=== PATIENT | male | born 1970 | race Caucasian/White ===

== ENCOUNTER 2019-05-19 08:40 | Day surgery (SDC) | payer MEDICAID, OTHER ==
[2019-05-18 08:29] VITALS: BMI 41.8
[~2019-05-19 08:40] MED LIST: LACTATED RINGERS 1,000 ML IV SCH
[2019-05-19 09:06] VITALS: RESP 16; TEMP 97.2
[2019-05-19] MEDS ORDERED: LIDOCAINE 1% 20 ML VIAL (10MG/ML) FOR IV START INTRADERMA ONE (09:11)
[2019-05-19] MEDS ORDERED: PROPOFOL 10 MG/ML 20 ML VIAL IV ONE (09:49)
--- NOTE | 2019-05-19 10:07 | P.PCN ---
Date of Procedure: 05/19/19 Procedure(s) Performed: BRIEF HISTORY: Patient is a 48-year-old pleasant male, scheduled for an elective colonoscopy as a part of screening for colorectal neoplasia. PROCEDURE PERFORMED: Colonoscopy with snare polypectomy. PREOPERATIVE DIAGNOSIS: Screening for colon cancer. IV sedation per Anesthesia. PROCEDURE: After informed consent was obtained, the patient, was brought into the endoscopy unit. IV sedation was administered by Anesthesia under continuous monitoring. Digital rectal examination was normal. Initially the Olympus CF-160 flexible video colonoscope was then inserted in the rectum, gradually advanced into the cecum without any difficulty. Careful examination was performed as the scope was gradually being withdrawn. Ileocecal valve and the appendiceal orifice were visualized and appeared normal. Prep was excellent. Mucosa of the cecum, ascending colon, transverse colon appeared normal. In the descending colon there were 2 polyps measuring 5 mm and 6 mm in size both of which were sessile and removed by snare polypectomy. In the sigmoid colon there was a 5 mm polyp and a 1.5 cm pedunculated polyp both of which were removed by snare polypectomy. Rest of the, descending colon, sigmoid colon, and rectum appeared normal. Retroflexion was performed in the rectum and no lesions were seen. The patient tolerated the procedure well. IMPRESSION: 5 mm and 6 mm sessile descending colon polyp status post polypectomy 5 mm and 1.5 cm pedunculated sigmoid colon polyps status post polypectomy RECOMMENDATIONS: Findings of this examination were discussed with the patient as well as his family. He was advised to follow with the biopsy results. If the biopsy shows an adenoma he can have a repeat colonoscopy in 3 years.
[2019-05-19 10:13] VITALS: PULSE 77
[2019-05-19 10:34] VITALS: BP 127/81
== END 2019-05-19 10:44 | disposition home or self-care (01) ==
LOC: ORWHC2ENDO 08:40
PROVIDERS: ATTEND Internal Medicine Gastroenterology
DX: Z12.11 Encounter for screening for malignant neoplasm of colon (principal); D12.4 Benign neoplasm of descending colon; D12.5 Benign neoplasm of sigmoid colon; I10 Essential (primary) hypertension; G47.33 Obstructive sleep apnea (adult) (pediatric); J45.909 Unspecified asthma, uncomplicated; E66.01 Morbid (severe) obesity due to excess calories; Z68.41 Body mass index [BMI] 40.0-44.9, adult; Z88.1 Allergy status to other antibiotic agents; Z88.8 Allergy status to other drugs, medicaments and biological substances; Z79.1 Long term (current) use of non-steroidal anti-inflammatories (NSAID)
CPT/HCPCS: 88305; 45385; J2704

== ENCOUNTER → 2019-11-30 | Outpatient (CLI) | payer MEDICAID | END | disposition home or self-care (01) | LOC: LABWHC1 14:26 | PROVIDERS: ATTEND Physician Assistant | DX: L40.0 Psoriasis vulgaris (principal); Z79.899 Other long term (current) drug therapy | CPT/HCPCS: 36415; 86480 ==

== ENCOUNTER → 2020-12-22 | Outpatient (CLI) | payer MEDICAID | END | disposition home or self-care (01) | LOC: LABWHC1 13:03 | PROVIDERS: ATTEND Physician Assistant | DX: L40.0 Psoriasis vulgaris (principal) | CPT/HCPCS: 36415; 86480 ==

== ENCOUNTER 2021-01-01 08:30 | Day surgery (SDC) | payer MEDICAID ==
[2020-12-29 11:23] VITALS: BMI 43.9
[~2021-01-01 08:30] MED LIST changes: +ACETAMINOPHEN TAB 500 MG TAB PO PRN; +DEXAMETHASONE SOD PHOSPHATE 4 MG/ML 1 ML VIAL IV ONE; +HEPARIN SODIUM,PORCINE 5,000 UNIT/ML 1 ML VIAL SQ PRN; +HYDROmorphone 0.5 MG/0.5 ML SYRINGE IVP PRN; -LACTATED RINGERS 1,000 ML IV SCH; +MIDAZOLAM 2 MG/2 ML VIAL IV PRN; +ONDANSETRON 4 MG/2 ML VIAL IVP ONE; +Pre Op ABX Message 1 EACH MISC MISCELLANE ONE; +fentaNYL (PF) 50 MCG/ML 2 ML AMP IV PRN
[2021-01-01 09:01] VITALS: RESP 16
[2021-01-01] MEDS: LACTATED RINGERS 1,000 ML IV SCH ×2 (09:08→10:23)
[2021-01-01] MEDS ORDERED: LIDOCAINE 1% (10MG/ML) FOR IV START INTRADERMA ONE (09:12)
[2021-01-01 09:16] LABS: Basophils # (A) 0.1 k/uL (0-0.2); Basophils % (A) 1 %; Eosinophils # (A) 0.2 k/uL (0-0.7); Eosinophils % (A) 2 %; HGB 15.5 gm/dL (13.0-17.5); Lymphocytes % (A) 34 %; MCH 29.2 pg (25.0-35.0); MCHC 34.3 g/dL (31.0-37.0); Mean Platelet Volume 7.4; Monocytes # (A) 0.5 k/uL (0-1.0); Monocytes % (A) 6 %; Neutrophils # (A) 4.9 k/uL (1.3-7.7); Neutrophils % (A) 55 %; Platelet Count 279 k/uL (150-450); RDW 15.1 % (11.5-15.5); WBC 8.9 k/uL (3.8-10.6)
--- NOTE | 2021-01-01 09:54 | P.GSHP ---
History of Present Illness H&P Date: 01/01/21 Chief Complaint: Back melanoma Is a 50-year-old male who has a previously biopsied back melanoma. Patient rents today for wide local excision. Past Medical History Past Medical History: Asthma, Cancer, Hypertension, Skin Disorder, Sleep Apnea/CPAP/BIPAP Additional Past Medical History / Comment(s): no cpap used, psoriasis, MALIGNANT MELONOMA BACK History of Any Multi-Drug Resistant Organisms: None Reported Past Surgical History: Cholecystectomy, Hernia Repair Additional Past Surgical History / Comment(s): HERNIA-UMBILICAL HERNIA Past Anesthesia/Blood Transfusion Reactions: No Reported Reaction Smoking Status: Never smoker - Past Family History Father Family Medical History: Cancer Mother Family Medical History: Cancer Medications and Allergies Home Medications Medication Instructions Recorded Confirmed Type Montelukast Sodium [Singulair] 10 mg PO HS 04/10/15 01/01/21 History [place]-3 Fatty Acids/Fish Oil [Fish 1 each PO DAILY 04/10/15 01/01/21 History Oil 1,000 mg Softgel] Ibuprofen [Motrin] 800 mg PO Q8HR PRN #30 tab 04/14/15 01/01/21 Rx Biotin 5,000 mcg PO DAILY 05/18/19 01/01/21 History Cholecalciferol [Vitamin D3 (25 5,000 unit PO DAILY 05/18/19 01/01/21 History Mcg = 1000 Iu)] Multivitamins, Thera [Multivitamin 1 tab PO DAILY 05/18/19 01/01/21 History (formulary)] Vortioxetine Hydrobromide 5 mg PO DAILY 05/18/19 01/01/21 History [Trintellix] Ixekizumab [Taltz Autoinjector] 80 mg SQ Q30D 12/29/20 01/01/21 History Telmisartan 80 mg PO HS 12/29/20 01/01/21 History hydroCHLOROthiazide [Hydrodiuril] 25 mg PO HS 12/29/20 01/01/21 History Allergies Allergy/AdvReac Type Severity Reaction Status Date / Time acetaminophen [From Vicodin] Allergy Nausea, Verified 12/29/20 11:10 insomnia aspartame Allergy Rash/Hives Verified 12/29/20 11:10 erythromycin base Allergy Rash/Hives Verified 12/29/20 11:10 hydrocodone bitartrate Allergy Nausea, Verified 12/29/20 11:10 [From Vicodin] insomnia lidocaine Allergy "passed Verified 12/29/20 11:10 out" Nitrate Analogues Allergy Rash/Hives Verified 12/29/20 11:10 paroxetine HCl [From Paxil] Allergy LUZ Verified 12/29/20 11:10 sulfite Allergy Rash/Hives Verified 12/29/20 11:10 environmental Allergy Unknown Uncoded 12/29/20 11:10 stevia Allergy Rash/Hives Uncoded 12/29/20 11:10 Surgical - Exam Vital Signs Temp Pulse Resp BP Pulse Ox 97.0 F L 102 H 16 136/96 99 01/01/21 08:57 01/01/21 08:57 01/01/21 08:57 01/01/21 08:57 01/01/21 08:57 - General well developed, well nourished, no distress - Eyes PERRL - ENT normal pinna - Neck no masses - Respiratory normal expansion - Cardiovascular Rhythm: regular - Abdomen Abdomen: soft, non tender - Integumentary 2 cm shave biopsy back melanoma over mid back near spine Results - Labs 01/01/21 09:10 01/01/21 09:10 Diabetes panel 01/01/21 Range/Units 09:10 Potassium 4.0 (3.5-5.1) mmol/L Pituitary panel 01/01/21 Range/Units 09:10 Potassium 4.0 (3.5-5.1) mmol/L Adrenal panel 01/01/21 Range/Units 09:10 Potassium 4.0 (3.5-5.1) mmol/L Assessment and Plan Assessment: Back melanoma. We'll perform wide local excision
[2021-01-01] MEDS ORDERED: PROPOFOL 10 MG/ML 20 ML VIAL IV ONE (10:15)
[2021-01-01] MEDS ORDERED: MIDAZOLAM 2 MG/2 ML VIAL ONE (10:15)
[2021-01-01] MEDS ORDERED: SUCCINYLCHOLINE CHLORIDE 100 MG/5 ML SYR IV ONE (10:15)
[2021-01-01] MEDS ORDERED: fentaNYL (PF) 50 MCG/ML 2 ML AMP ONE (10:15)
[2021-01-01] MEDS ORDERED: BUPIVACAINE (PF) 0.25% 30 ML VIAL SQ ONE ×2 (10:47)
--- NOTE | 2021-01-01 11:04 | P.OP ---
Date of Procedure: 01/01/21 Preoperative Diagnosis: Melanoma of back Postoperative Diagnosis: Melanoma of back Procedure(s) Performed: Local excision of back melanoma Anesthesia: KENRICK Surgeon: Harman Hawkins Estimated Blood Loss (ml): 5 Pathology: other (Back melanoma) Condition: stable Disposition: PACU Description of Procedure: Patient's placed on the operative table in the lateral position. Due to his morbid obesity the patient was intubated. His back was prepped and draped usual sterile fashion. Elliptical skin incision was made around the back melanoma. This lesion measured approximately 5 x 3 cm. The Bovie pseudocyst. The Bovie was used to dissect through subcutaneous tissues. The specimens of pathology. A suture was used to willam the the superior portion of the lesion. The skin was closed with interrupted 2-0 nylon. Patient top she will was sent to recovery room stable condition.
[2021-01-01 11:17] VITALS: TEMP 97.6
[2021-01-01 12:16] VITALS: BP 136/95; PULSE 86
== END 2021-01-01 12:39 | disposition home or self-care (01) ==
LOC: OR 08:30
PROVIDERS: ATTEND Surgery
DX: C43.59 Malignant melanoma of other part of trunk (principal); I10 Essential (primary) hypertension; J45.909 Unspecified asthma, uncomplicated; G47.30 Sleep apnea, unspecified; E66.01 Morbid (severe) obesity due to excess calories; Z79.899 Other long term (current) drug therapy; Z80.9 Family history of malignant neoplasm, unspecified; Z88.6 Allergy status to analgesic agent; Z88.5 Allergy status to narcotic agent; Z88.8 Allergy status to other drugs, medicaments and biological substances; Z91.018 Allergy to other foods
CPT/HCPCS: 11606; 88305; 84132; 85025; 88342; 88341; J2250; J1644; J1100; J2405; J3010; J0330; J2704

== ENCOUNTER 2021-01-03 21:05 | Emergency (ER) | payer MEDICAID ==
[2021-01-03 23:24] VITALS: BP 132/71; PULSE 100; RESP 20; TEMP 98.9
--- NOTE | 2021-01-04 00:35 | ED ---
Skin/Abscess/FB HPI - General Chief complaint: Skin/Abscess/Foreign Body Stated complaint: Possible wound infection Time Seen by Provider: 01/04/21 00:31 Source: patient, RN notes reviewed Mode of arrival: ambulatory Limitations: no limitations - History of Present Illness Initial comments: Patient is a 50-year-old male that had a large skin cancer removed on 01/01/2021. He noted that decided to change and drain some fluid so he can emergency room to get checked out. He noted that he is taking her Biaxin as a follow-up appointment today at 1 PM. He is on account to make sure that nothing was more serious wrong or infection at stated. He denied any pain or discomfort while standing up for the exam interview. He denied chest pain shortness breath headache nausea vomiting diarrhea constipation fever fatigue chills weakness numbness tingling. - Related Data Home Medications Medication Instructions Recorded Confirmed Montelukast Sodium [Singulair] 10 mg PO HS 04/10/15 01/01/21 [place]-3 Fatty Acids/Fish Oil [Fish 1 each PO DAILY 04/10/15 01/01/21 Oil 1,000 mg Softgel] Biotin 5,000 mcg PO DAILY 05/18/19 01/01/21 Cholecalciferol [Vitamin D3 (25 5,000 unit PO DAILY 05/18/19 01/01/21 Mcg = 1000 Iu)] Multivitamins, Thera [Multivitamin 1 tab PO DAILY 05/18/19 01/01/21 (formulary)] Vortioxetine Hydrobromide 5 mg PO DAILY 05/18/19 01/01/21 [Trintellix] Ixekizumab [Taltz Autoinjector] 80 mg SQ Q30D 12/29/20 01/01/21 Telmisartan 80 mg PO HS 12/29/20 01/01/21 hydroCHLOROthiazide [Hydrodiuril] 25 mg PO HS 12/29/20 01/01/21 Previous Rx's Medication Instructions Recorded Ibuprofen [Motrin] 800 mg PO Q8HR PRN #30 tab 04/14/15 Allergies Allergy/AdvReac Type Severity Reaction Status Date / Time acetaminophen [From Vicodin] Allergy Nausea, Verified 01/03/21 23:24 insomnia aspartame Allergy Rash/Hives Verified 01/03/21 23:24 erythromycin base Allergy Rash/Hives Verified 01/03/21 23:24 hydrocodone bitartrate Allergy Nausea, Verified 01/03/21 23:24 [From Vicodin] insomnia lidocaine Allergy "passed Verified 01/03/21 23:24 out" Nitrate Analogues Allergy Rash/Hives Verified 01/03/21 23:24 paroxetine HCl [From Paxil] Allergy LUZ Verified 01/03/21 23:24 sulfite Allergy Rash/Hives Verified 01/03/21 23:24 environmental Allergy Unknown Uncoded 01/03/21 23:24 stevia Allergy Rash/Hives Uncoded 01/03/21 23:24 Review of Systems ROS Statement: Those systems with pertinent positive or pertinent negative responses have been documented in the HPI. ROS Other: All systems not noted in ROS Statement are negative. Past Medical History Past Medical History: Asthma, Cancer, Hypertension, Skin Disorder, Sleep Apnea/CPAP/BIPAP Additional Past Medical History / Comment(s): no cpap used, psoriasis, MALIGNANT MELONOMA BACK History of Any Multi-Drug Resistant Organisms: None Reported Past Surgical History: Cholecystectomy, Hernia Repair Additional Past Surgical History / Comment(s): HERNIA-UMBILICAL HERNIA Past Anesthesia/Blood Transfusion Reactions: No Reported Reaction Past Psychological History: Depression Smoking Status: Never smoker Past Alcohol Use History: None Reported Past Drug Use History: None Reported - Past Family History Father Family Medical History: Cancer Mother Family Medical History: Cancer General Exam Limitations: no limitations General appearance: alert, in no apparent distress, obese Head exam: Present: atraumatic, normocephalic, normal inspection Eye exam: Present: normal appearance, PERRL, EOMI. Absent: scleral icterus, conjunctival injection, periorbital swelling Neck exam: Present: normal inspection. Absent: tenderness, meningismus, lymphadenopathy Respiratory exam: Present: normal lung sounds bilaterally. Absent: respiratory distress, wheezes, rales, rhonchi, stridor Cardiovascular Exam: Present: regular rate, normal rhythm, normal heart sounds. Absent: systolic murmur, diastolic murmur, rubs, gallop, clicks GI/Abdominal exam: Present: soft, normal bowel sounds. Absent: distended, tenderness, guarding, rebound, rigid Extremities exam: Present: normal inspection, full ROM, normal capillary refill. Absent: tenderness, pedal edema, joint swelling, calf tenderness Neurological exam: Present: alert, oriented X3, CN II-XII intact Psychiatric exam: Present: normal affect, normal mood Skin exam: Present: warm, dry, intact, normal color, other (Approximately 3 inch surgical incision site with very minimal serosanguineous drainage, nontender minimal erythema sutures still intact.). Absent: rash Course Vital Signs 01/03/21 23:21 Temperature 98.9 F Pulse Rate 100 Respiratory 20 Rate Blood Pressure 132/71 O2 Sat by Pulse 97 Oximetry Medical Decision Making - Medical Decision Making 50-year-old male with post surgical site concerns. Surgical site appears fine was stitches intact minimal erythema minimal serous saline as drainage. Case discussed with Dr. Pendleton, patient can discharge home with follow-up to surgeon. Disposition Clinical Impression: Surgical site reaction Disposition: HOME SELF-CARE Condition: Stable Instructions (If sedation given, give patient instructions): Surgical Site Infections (ED) Additional Instructions: Please return to the Emergency Department if symptoms worsen or any other concerns. Follow-up with surgeon as scheduled. Continue take antibiotics until complete. Minimal serosanguineous drainage and erythema is normal for surgical site incisions to soft tissue trauma. Is patient prescribed a controlled substance at d/c from ED?: No Referrals: Gabriel Zaidi MD [Primary Care Provider] - 1-2 days Time of Disposition: 00:35
== END 2021-01-04 00:40 | disposition home or self-care (01) ==
LOC: EC 21:05
DX: T81.31XA Disruption of external operation (surgical) wound, not elsewhere classified, initial encounter (principal); I10 Essential (primary) hypertension; J45.909 Unspecified asthma, uncomplicated; Z79.1 Long term (current) use of non-steroidal anti-inflammatories (NSAID); Z85.828 Personal history of other malignant neoplasm of skin; F32.9 Major depressive disorder, single episode, unspecified
CPT/HCPCS: 99283

== ENCOUNTER 2021-01-14 00:02 | Emergency (ER) | payer MEDICAID ==
[2021-01-14 04:06] LABS: Basophils # (A) 0.1 k/uL (0-0.2); Basophils % (A) 1 %; Eosinophils # (A) 0.3 k/uL (0-0.7); Eosinophils % (A) 3 %; HCT 44.1 % (39.0-53.0); HGB 15.3 gm/dL (13.0-17.5); Lymphocytes # (A) 3.3 k/uL (1.0-4.8); Lymphocytes % (A) 30 %; MCH 29.5 pg (25.0-35.0); MCHC 34.7 g/dL (31.0-37.0); MCV 84.8 fL (80.0-100.0); Mean Platelet Volume 7.5; Monocytes # (A) 0.6 k/uL (0-1.0); Monocytes % (A) 6 %; Neutrophils # (A) 6.5 k/uL (1.3-7.7); Neutrophils % (A) 59 %; Platelet Count 262 k/uL (150-450); RDW 14.9 % (11.5-15.5)
[2021-01-14 04:21] LABS: Albumin 4.2 g/dL (3.5-5.0); Calcium 9.6 mg/dL (8.4-10.2); Potassium 3.9 mmol/L (3.5-5.1); Total Bilirubin 0.3 mg/dL (0.2-1.3); Total Protein 7.1 g/dL (6.3-8.2)
--- NOTE | 2021-01-14 05:18 | ED ---
Skin/Abscess/FB HPI - General Chief complaint: Skin/Abscess/Foreign Body Stated complaint: Post-Op Infection Time Seen by Provider: 01/14/21 02:52 Source: patient Mode of arrival: ambulatory Limitations: no limitations - History of Present Illness Initial comments: 50-year-old male patient presents to the emergency department today for evaluation of incision to the upper back. Patient had wide excision of melanoma with Dr. Hawkins on 01/01/2021. He was started on Bactrim at time of the procedure. He was evaluated in the emergency department and then subsequently followed up with Dr. Hawkins on 01/11/2021 and was switched from Bactrim to Keflex. Patient states that he has been taking the Keflex as directed since then and it seems that the infection is worsening. States it has become more red, one of the sutures popped open, and he is been having drainage from the area. He states that he is just felt generally unwell. Denies any nausea or vomiting. Denies any fever. Patient denies any recent rash, cough, shortness of breath, chest pain, abdominal pain, diarrhea, constipation, back pain, numbness, tingling, dizziness, weakness, hematuria, dysuria, urinary urgency, urinary frequency, headache, visual changes, or any other complaints. - Related Data Home Medications Medication Instructions Recorded Confirmed Montelukast Sodium [Singulair] 10 mg PO HS 04/10/15 01/01/21 [place]-3 Fatty Acids/Fish Oil [Fish 1 each PO DAILY 04/10/15 01/01/21 Oil 1,000 mg Softgel] Biotin 5,000 mcg PO DAILY 05/18/19 01/01/21 Cholecalciferol [Vitamin D3 (25 5,000 unit PO DAILY 05/18/19 01/01/21 Mcg = 1000 Iu)] Multivitamins, Thera [Multivitamin 1 tab PO DAILY 05/18/19 01/01/21 (formulary)] Vortioxetine Hydrobromide 5 mg PO DAILY 05/18/19 01/01/21 [Trintellix] Ixekizumab [Taltz Autoinjector] 80 mg SQ Q30D 12/29/20 01/01/21 Telmisartan 80 mg PO HS 12/29/20 01/01/21 hydroCHLOROthiazide [Hydrodiuril] 25 mg PO HS 12/29/20 01/01/21 Previous Rx's Medication Instructions Recorded Ibuprofen [Motrin] 800 mg PO Q8HR PRN #30 tab 04/14/15 Mupirocin 2% Oint [Bactroban 2% 1 applic TOPICAL BID #15 gm 01/14/21 Oint] Allergies Allergy/AdvReac Type Severity Reaction Status Date / Time acetaminophen [From Vicodin] Allergy Nausea, Verified 01/14/21 00:39 insomnia aspartame Allergy Rash/Hives Verified 01/14/21 00:39 erythromycin base Allergy Rash/Hives Verified 01/14/21 00:39 hydrocodone bitartrate Allergy Nausea, Verified 01/14/21 00:39 [From Vicodin] insomnia lidocaine Allergy "passed Verified 01/14/21 00:39 out" Nitrate Analogues Allergy Rash/Hives Verified 01/14/21 00:39 paroxetine HCl [From Paxil] Allergy LUZ Verified 01/14/21 00:39 sulfite Allergy Rash/Hives Verified 01/14/21 00:39 environmental Allergy Unknown Uncoded 01/14/21 00:39 stevia Allergy Rash/Hives Uncoded 01/14/21 00:39 Review of Systems ROS Statement: Those systems with pertinent positive or pertinent negative responses have been documented in the HPI. ROS Other: All systems not noted in ROS Statement are negative. Past Medical History Past Medical History: Asthma, Cancer, Hypertension, Skin Disorder, Sleep Apnea/CPAP/BIPAP Additional Past Medical History / Comment(s): no cpap used, psoriasis, MALIGNANT MELONOMA BACK History of Any Multi-Drug Resistant Organisms: None Reported Past Surgical History: Cholecystectomy, Hernia Repair Additional Past Surgical History / Comment(s): HERNIA-UMBILICAL HERNIA Past Anesthesia/Blood Transfusion Reactions: No Reported Reaction Past Psychological History: Depression Smoking Status: Never smoker Past Alcohol Use History: None Reported Past Drug Use History: None Reported - Past Family History Father Family Medical History: Cancer Mother Family Medical History: Cancer General Exam Limitations: no limitations General appearance: alert, in no apparent distress, other (Physical well- developed, well-nourished adult male patient in no acute distress. Vital signs upon presentation are temperature 98.1F, pulse 1:15, respirations 20, blood pressure 168/88, pulse ox 99% on room air.) Eye exam: Present: normal appearance, PERRL, EOMI. Absent: scleral icterus, conjunctival injection, periorbital swelling ENT exam: Present: normal exam, normal oropharynx, mucous membranes moist Respiratory exam: Present: normal lung sounds bilaterally. Absent: respiratory distress, wheezes, rales, rhonchi, stridor Cardiovascular Exam: Present: normal rhythm, tachycardia, normal heart sounds. Absent: systolic murmur, diastolic murmur, rubs, gallop, clicks GI/Abdominal exam: Present: soft, normal bowel sounds. Absent: distended, ten derness, guarding, rebound, rigid Back exam: Present: other (There is a 6 cm in there is dehiscence at the upper portion of the wound. There is some mild purulent drainage and surrounding erythema.) Neurological exam: Present: alert, oriented X3, CN II-XII intact Psychiatric exam: Present: normal affect, normal mood Skin exam: Present: warm, dry, intact, normal color. Absent: rash Course Vital Signs 01/14/21 00:36 Temperature 98.1 F Pulse Rate 115 H Respiratory 20 Rate Blood Pressure 168/88 O2 Sat by Pulse 99 Oximetry Medical Decision Making - Medical Decision Making 50-year-old male patient presents to the emergency department should did reveal 6 cm incision to the mid upper back with some dehiscence, sutures are in place. There is some surrounding erythema and purulent drainage. This was cultured. Labs reviewed and revealed white blood cell count 11.0. Lactic acid is normal. He did start Keflex on , we will continue this medication pending culture results. He'll be given a prescription for mupirocin ointment to apply. Wound care was discussed. Instructed to follow-up the primary care physician for recheck in 1-2 days. Instructed to follow up with Dr. Hawkins on Friday. He verbalizes understanding and agrees with this plan. Case discussed with my attending Dr. Saavedra. - Lab Data Result diagrams: 01/14/21 03:50 01/14/21 03:50 Lab Results 01/14/21 01/14/21 01/14/21 Range/Units 03:50 03:50 03:50 WBC 11.0 H (3.8-10.6) k/uL RBC 5.20 (4.30-5.90) m/uL Hgb 15.3 (13.0-17.5) gm/dL Hct 44.1 (39.0-53.0) % MCV 84.8 (80.0-100.0) fL MCH 29.5 (25.0-35.0) pg MCHC 34.7 (31.0-37.0) g/dL RDW 14.9 (11.5-15.5) % Plt Count 262 (150-450) k/uL MPV 7.5 Neutrophils % 59 % Lymphocytes % 30 % Monocytes % 6 % Eosinophils % 3 % Basophils % 1 % Neutrophils # 6.5 (1.3-7.7) k/uL Lymphocytes # 3.3 (1.0-4.8) k/uL Monocytes # 0.6 (0-1.0) k/uL Eosinophils # 0.3 (0-0.7) k/uL Basophils # 0.1 (0-0.2) k/uL Sodium 137 (137-145) mmol/L Potassium 3.9 (3.5-5.1) mmol/L Chloride 101 (98-107) mmol/L Carbon Dioxide 26 (22-30) mmol/L Anion Gap 10 mmol/L BUN 16 (9-20) mg/dL Creatinine 1.33 H (0.66-1.25) mg/dL Est GFR (CKD-EPI)AfAm 71 (>60 ml/min/1.73 sqM) Est GFR (CKD-EPI)NonAf 61 (>60 ml/min/1.73 sqM) Glucose 137 H (74-99) mg/dL Plasma Lactic Acid Ariel 1.4 (0.7-2.0) mmol/L Calcium 9.6 (8.4-10.2) mg/dL Total Bilirubin 0.3 (0.2-1.3) mg/dL AST 25 (17-59) U/L ALT 31 (4-49) U/L Alkaline Phosphatase 88 (38-126) U/L Total Protein 7.1 (6.3-8.2) g/dL Albumin 4.2 (3.5-5.0) g/dL Disposition Clinical Impression: Surgical site infection Disposition: HOME SELF-CARE Condition: Good Instructions (If sedation given, give patient instructions): Surgical Site Infections (ED) Additional Instructions: Continue the Keflex. Call Dr. Hawkins's office Friday for further direction. Consider follow-up with wound care center. Return to the emergency department for any new, worsening, or concerning symptoms. Prescriptions: Mupirocin 2% Oint [Bactroban 2% Oint] 1 applic TOPICAL BID #15 gm Is patient prescribed a controlled substance at d/c from ED?: No Referrals: Gabriel Zaidi MD [Primary Care Provider] - 1-2 days [facility] [NON-STAFF] - 1-2 days Time of Disposition: 05:18
[2021-01-14 05:48] VITALS: BP 164/82; PULSE 104; RESP 18; TEMP 98.3
== END 2021-01-14 05:42 | disposition home or self-care (01) ==
LOC: EC 00:02
DX: T81.49XA Infection following a procedure, other surgical site, initial encounter (principal); J45.909 Unspecified asthma, uncomplicated; I10 Essential (primary) hypertension; G47.33 Obstructive sleep apnea (adult) (pediatric); F32.9 Major depressive disorder, single episode, unspecified
CPT/HCPCS: 36415; 80053; 83605; 85025; 87070; 87205; 99283

== ENCOUNTER 2021-05-04 12:06 | Emergency (ER) | payer MEDICAID ==
[2021-05-04 12:20] VITALS: TEMP 98.3
[2021-05-04] MEDS ORDERED: SODIUM CHLORIDE 0.9% 1,000 ML IV STA (12:44)
[2021-05-04] MEDS ORDERED: PANTOPRAZOLE 40 MG/10 ML VIAL IVP STA (12:45)
[2021-05-04 13:10] LABS: Basophils % (A) 0 %; Eosinophils # (A) 0.2 k/uL (0-0.7); Eosinophils % (A) 2 %; HCT 47.4 % (39.0-53.0); HGB 15.9 gm/dL (13.0-17.5); Lymphocytes # (A) 2.7 k/uL (1.0-4.8); Lymphocytes % (A) 22 %; MCH 29.4 pg (25.0-35.0); MCHC 33.5 g/dL (31.0-37.0); MCV 87.8 fL (80.0-100.0); Mean Platelet Volume 7.4; Monocytes # (A) 0.5 k/uL (0-1.0); Monocytes % (A) 4 %; Neutrophils # (A) 8.3 k/uL (1.3-7.7); Neutrophils % (A) 69 %; Platelet Count 272 k/uL (150-450); RBC 5.41 m/uL (4.30-5.90); RDW 15.7 % (11.5-15.5)
[2021-05-04 13:19] LABS: Albumin 4.1 g/dL (3.5-5.0); Calcium 9.7 mg/dL (8.4-10.2); Potassium 4.3 mmol/L (3.5-5.1); Total Bilirubin 0.3 mg/dL (0.2-1.3); Total Protein 6.9 g/dL (6.3-8.2)
[2021-05-04 13:47] LABS: Appearance,Urine Clear (Clear); Bilirubin,Urine Negative (Negative); Blood,Urine Negative (Negative); Color,Urine Yellow; Glucose,Urine (UA) Negative (Negative); Ketones,Urine Negative (Negative); Leukocyte Esterase,Urine Negative (Negative); Nitrite,Urine Negative (Negative); Protein,Urine Negative (Negative); Specific Gravity,Urine 1.024 (1.001-1.035); Urobilinogen,Urine <2.0 mg/dL (<2.0)
--- NOTE | 2021-05-04 14:45 | ED ---
Nausea/Vomiting/Diarrhea HPI - General Chief complaint: Nausea/Vomiting/Diarrhea Stated complaint: diarrhea Time Seen by Provider: 05/04/21 12:40 Source: patient Mode of arrival: ambulatory Limitations: no limitations - History of Present Illness Initial comments: Patient is a 50-year-old male presenting to emergency Department with complaints of diarrhea with abdominal cramping over the past 2 weeks. He states he was on 2 separate antibiotics about a month ago secondary to a skin infection. Patient states he has finished with those. Patient states about 2 weeks ago, he ate at a restaurant, developed what he thought was food poisoning the next day, had a few days of diarrhea and then symptoms seemed to improve. He states the symptoms then came back for a few more days, improved and then yesterday his diarrhea returned. He is not having any nausea or vomiting. He does admit to some abdominal cramping, mostly upper abdomen. He denies any fevers or chills, no chest pain or shortness of breath. He admits to history of cholecystectomy, hernia repair, no other abdominal surgeries. He has no further complaints at this time. - Related Data Home Medications Medication Instructions Recorded Confirmed Montelukast Sodium [Singulair] 10 mg PO HS 04/10/15 01/01/21 [facility] Fatty Acids/Fish Oil [Fish 1 each PO DAILY 04/10/15 01/01/21 Oil 1,000 mg Softgel] Biotin 5,000 mcg PO DAILY 05/18/19 01/01/21 Cholecalciferol [Vitamin D3 (25 5,000 unit PO DAILY 05/18/19 01/01/21 Mcg = 1000 Iu)] Multivitamins, Thera [Multivitamin 1 tab PO DAILY 05/18/19 01/01/21 (formulary)] Vortioxetine Hydrobromide 5 mg PO DAILY 05/18/19 01/01/21 [Trintellix] Ixekizumab [Taltz Autoinjector] 80 mg SQ Q30D 12/29/20 01/01/21 Telmisartan 80 mg PO HS 12/29/20 01/01/21 hydroCHLOROthiazide [Hydrodiuril] 25 mg PO HS 12/29/20 01/01/21 Previous Rx's Medication Instructions Recorded Ibuprofen [Motrin] 800 mg PO Q8HR PRN #30 tab 07/10/15 Mupirocin 2% Oint [Bactroban 2% 1 applic TOPICAL BID #15 gm 01/14/21 Oint] Allergies Allergy/AdvReac Type Severity Reaction Status Date / Time acetaminophen [From Vicodin] Allergy Nausea, Verified 05/04/21 12:20 insomnia aspartame Allergy Rash/Hives Verified 05/04/21 12:20 erythromycin base Allergy Rash/Hives Verified 05/04/21 12:20 hydrocodone bitartrate Allergy Nausea, Verified 05/04/21 12:20 [From Vicodin] insomnia lidocaine Allergy "passed Verified 05/04/21 12:20 out" Nitrate Analogues Allergy Rash/Hives Verified 05/04/21 12:20 paroxetine HCl [From Paxil] Allergy LUZ Verified 05/04/21 12:20 sulfite Allergy Rash/Hives Verified 05/04/21 12:20 environmental Allergy Unknown Uncoded 05/04/21 12:20 stevia Allergy Rash/Hives Uncoded 05/04/21 12:20 Review of Systems ROS Statement: Those systems with pertinent positive or pertinent negative responses have been documented in the HPI. ROS Other: All systems not noted in ROS Statement are negative. Past Medical History Past Medical History: Asthma, Cancer, Hypertension, Skin Disorder, Sleep Apnea/CPAP/BIPAP Additional Past Medical History / Comment(s): no cpap used, psoriasis, MALIGNANT MELONOMA BACK History of Any Multi-Drug Resistant Organisms: None Reported Past Surgical History: Cholecystectomy, Hernia Repair Additional Past Surgical History / Comment(s): HERNIA-UMBILICAL HERNIA Past Anesthesia/Blood Transfusion Reactions: No Reported Reaction Past Psychological History: Depression Smoking Status: Never smoker Past Alcohol Use History: None Reported Past Drug Use History: None Reported - Past Family History Father Family Medical History: Cancer Mother Family Medical History: Cancer General Exam - General Exam Comments Initial Comments: GENERAL: Patient is well-developed and well-nourished. Patient is nontoxic and in no acute distress. HEAD: Atraumatic, normocephalic. EYES: Pupils equal round and reactive to light, extraocular movements intact, sclera anicteric, conjunctiva are normal. Eyelids were unremarkable. ENT: TMs normal, nares patent, oropharynx clear without exudates. Moist mucous membranes. NECK: Normal range of motion, supple without lymphadenopathy or JVD. LUNGS: Unlabored respirations. Breath sounds clear to auscultation bilaterally and equal. No wheezes rales or rhonchi. HEART: Regular rate and rhythm without murmurs, rubs or gallops. ABDOMEN: Soft, mildly tender in upper abdomen, no other tenderness, hyperactive bowel sounds. No guarding, no rebound. No masses appreciated. : Deferred MUSCULOSKELETAL: Normal extremities with adequate strength and normal range of motion, no pitting or edema. No clubbing or cyanosis. NEUROLOGICAL: Patient is alert and oriented x 3. Motor and sensory are also intact. Cranial nerves II through XII grossly intact. Symmetrical smile. Normal speech, normal gait. PSYCH: Normal mood, normal affect. SKIN: Warm, Dry, normal turgor, no rashes or lesions noted. Limitations: no limitations Course Vital Signs 05/04/21 05/04/21 12:16 12:19 Temperature 98.3 F Pulse Rate 109 H 115 H Respiratory 20 20 Rate Blood Pressure 155/103 152/100 O2 Sat by Pulse 96 95 Oximetry Medical Decision Making - Medical Decision Making Patient is a 50-year-old male presenting with diarrhea and abdominal cramping intermittently over the past 2 weeks. No fevers, mildly tender in the upper abdomen. Labs show a slight white count at 12.0, lipase is normal, lactic acid is normal, urine is normal. C. diff is negative. Patient is resting comfortably, discussed these findings with him. Patient states he's only had 2 bowel movements here, does report improvement of symptoms. I discussed with him that this is less likely to be bacterial, did recommend Imodium for his diarrhea. He can follow back up with his PCP. He is agreeable to this plan of care and is stable for discharge. Case discussed Dr. Graham. - Lab Data Result diagrams: 05/04/21 12:52 05/04/21 12:52 Lab Results 05/04/21 05/04/21 05/04/21 Range/Units 12:52 12:52 12:52 WBC 12.0 H (3.8-10.6) k/uL RBC 5.41 (4.30-5.90) m/uL Hgb 15.9 (13.0-17.5) gm/dL Hct 47.4 (39.0-53.0) % MCV 87.8 (80.0-100.0) fL MCH 29.4 (25.0-35.0) pg MCHC 33.5 (31.0-37.0) g/dL RDW 15.7 H (11.5-15.5) % Plt Count 272 (150-450) k/uL MPV 7.4 Neutrophils % 69 % Lymphocytes % 22 % Monocytes % 4 % Eosinophils % 2 % Basophils % 0 % Neutrophils # 8.3 H (1.3-7.7) k/uL Lymphocytes # 2.7 (1.0-4.8) k/uL Monocytes # 0.5 (0-1.0) k/uL Eosinophils # 0.2 (0-0.7) k/uL Basophils # 0.0 (0-0.2) k/uL Sodium 137 (137-145) mmol/L Potassium 4.3 (3.5-5.1) mmol/L Chloride 103 (98-107) mmol/L Carbon Dioxide 23 (22-30) mmol/L Anion Gap 11 mmol/L BUN 14 (9-20) mg/dL Creatinine 1.18 (0.66-1.25) mg/dL Est GFR (CKD-EPI)AfAm 82 (>60 ml/min/1.73 sqM) Est GFR (CKD-EPI)NonAf 71 (>60 ml/min/1.73 sqM) Glucose 163 H (74-99) mg/dL Plasma Lactic Acid Ariel (0.7-2.0) mmol/L Calcium 9.7 (8.4-10.2) mg/dL Total Bilirubin 0.3 (0.2-1.3) mg/dL AST 23 (17-59) U/L ALT 27 (4-49) U/L Alkaline Phosphatase 103 (38-126) U/L Total Protein 6.9 (6.3-8.2) g/dL Albumin 4.1 (3.5-5.0) g/dL Lipase 53 (23-300) U/L Urine Color Yellow Urine Appearance Clear (Clear) Urine pH 5.0 (5.0-8.0) Ur Specific [place] 1.024 (1.001-1.035) Urine Protein Negative (Negative) Urine Glucose (UA) Negative (Negative) Urine Ketones Negative (Negative) Urine Blood Negative (Negative) Urine Nitrite Negative (Negative) Urine Bilirubin Negative (Negative) Urine Urobilinogen <2.0 (<2.0) mg/dL Ur Leukocyte Esterase Negative (Negative) C. difficile (EIA) Intrp (Negative) 05/04/21 05/04/21 Range/Units 12:52 12:52 WBC (3.8-10.6) k/uL RBC (4.30-5.90) m/uL Hgb (13.0-17.5) gm/dL Hct (39.0-53.0) % MCV (80.0-100.0) fL MCH (25.0-35.0) pg MCHC (31.0-37.0) g/dL RDW (11.5-15.5) % Plt Count (150-450) k/uL MPV Neutrophils % % Lymphocytes % % Monocytes % % Eosinophils % % Basophils % % Neutrophils # (1.3-7.7) k/uL Lymphocytes # (1.0-4.8) k/uL Monocytes # (0-1.0) k/uL Eosinophils # (0-0.7) k/uL Basophils # (0-0.2) k/uL Sodium (137-145) mmol/L Potassium (3.5-5.1) mmol/L Chloride (98-107) mmol/L Carbon Dioxide (22-30) mmol/L Anion Gap mmol/L BUN (9-20) mg/dL Creatinine (0.66-1.25) mg/dL Est GFR (CKD-EPI)AfAm (>60 ml/min/1.73 sqM) Est GFR (CKD-EPI)NonAf (>60 ml/min/1.73 sqM) Glucose (74-99) mg/dL Plasma Lactic Acid Ariel 1.5 (0.7-2.0) mmol/L Calcium (8.4-10.2) mg/dL Total Bilirubin (0.2-1.3) mg/dL AST (17-59) U/L ALT (4-49) U/L Alkaline Phosphatase (38-126) U/L Total Protein (6.3-8.2) g/dL Albumin (3.5-5.0) g/dL Lipase (23-300) U/L Urine Color Urine Appearance (Clear) Urine pH (5.0-8.0) Ur Specific [place] (1.001-1.035) Urine Protein (Negative) Urine Glucose (UA) (Negative) Urine Ketones (Negative) Urine Blood (Negative) Urine Nitrite (Negative) Urine Bilirubin (Negative) Urine Urobilinogen (<2.0) mg/dL Ur Leukocyte Esterase (Negative) C. difficile (EIA) Intrp Negative (Negative) Disposition Clinical Impression: Diarrhea Disposition: HOME SELF-CARE Condition: Stable Instructions (If sedation given, give patient instructions): Acute Diarrhea (ED) Additional Instructions: Please return to the Emergency Department if symptoms worsen or any other concerns. Trial of Imodium for here diarrhea. Increase your fluid intake. Follow-up with your primary care. Is patient prescribed a controlled substance at d/c from ED?: No Referrals: Gabriel Zaidi MD [Primary Care Provider] - 1-2 days Time of Disposition: 15:24
[2021-05-04 15:33] VITALS: BP 125/81; PULSE 71; RESP 18
== END 2021-05-04 15:40 | disposition home or self-care (01) ==
LOC: EC 12:06
DX: R19.7 Diarrhea, unspecified (principal); R10.9 Unspecified abdominal pain; I10 Essential (primary) hypertension; J45.909 Unspecified asthma, uncomplicated; Z90.49 Acquired absence of other specified parts of digestive tract; Z88.8 Allergy status to other drugs, medicaments and biological substances; Z88.5 Allergy status to narcotic agent; Z91.02 Food additives allergy status; Z91.018 Allergy to other foods; Z91.09 Other allergy status, other than to drugs and biological substances
CPT/HCPCS: 99284; 36415; 80053; 83605; 83690; 85025; 81003; 87324; 87045; 83630; 87046; 96374; C9113

== ENCOUNTER → 2021-12-14 | Outpatient (CLI) | payer MEDICAID | END | disposition home or self-care (01) | LOC: LABWHC1 14:22 | PROVIDERS: ATTEND Physician Assistant | DX: Z08 Encounter for follow-up examination after completed treatment for malignant neoplasm (principal); Z85.820 Personal history of malignant melanoma of skin; D55.9 Anemia due to enzyme disorder, unspecified; L40.0 Psoriasis vulgaris; Z79.899 Other long term (current) drug therapy | CPT/HCPCS: 36415; 86480 ==

== ENCOUNTER → 2023-10-03 | Outpatient (CLI) | payer MEDICAID | END | disposition home or self-care (01) | LOC: LABWHC1 13:57 | PROVIDERS: ATTEND Nurse Practitioner Family | DX: L40.0 Psoriasis vulgaris (principal); Z79.899 Other long term (current) drug therapy | CPT/HCPCS: 36415; 86480 ==

== ENCOUNTER 2024-02-11 07:43 | Day surgery (SDC) | payer MEDICAID, OTHER ==
[~2024-02-11 07:43] MED LIST changes: -ACETAMINOPHEN TAB 500 MG TAB PO PRN; -DEXAMETHASONE SOD PHOSPHATE 4 MG/ML 1 ML VIAL IV ONE; -HEPARIN SODIUM,PORCINE 5,000 UNIT/ML 1 ML VIAL SQ PRN; -HYDROmorphone 0.5 MG/0.5 ML SYRINGE IVP PRN; +LACTATED RINGERS 1,000 ML IV SCH; -MIDAZOLAM 2 MG/2 ML VIAL IV PRN; -ONDANSETRON 4 MG/2 ML VIAL IVP ONE; -Pre Op ABX Message 1 EACH MISC MISCELLANE ONE; -fentaNYL (PF) 50 MCG/ML 2 ML AMP IV PRN
[2024-02-11 08:22] LABS: Glucose,Whole Blood 135 mg/dL (70-110)
[2024-02-11] MEDS: LACTATED RINGERS 1,000 ML IV ONE ×2 (08:22→08:23)
[2024-02-11] MEDS ORDERED: GLYCOPYRROLATE 0.2 MG/ML 2 ML VIAL ONE (08:24)
[2024-02-11] MEDS ORDERED: PROPOFOL 10 MG/ML 20 ML VIAL IV ONE (08:24)
--- NOTE | 2024-02-11 08:29 | P.GSHP ---
History of Present Illness H&P Date: 02/11/24 CHIEF COMPLAINT: Colon screen HISTORY OF PRESENT ILLNESS: The patient is a 53-year-old male who presents for colon screen. Lower endoscopy was offered for further evaluation and management. PAST MEDICAL HISTORY: Please see list. PAST SURGICAL HISTORY: Please see list. MEDICATIONS: Please see list. ALLERGIES: Please see list. SOCIAL HISTORY: No illicit drug use FAMILY HISTORY: No reports of Crohn disease or ulcerative colitis. REVIEW OF ORGAN SYSTEMS: CONSTITUTIONAL: No reports of fevers or chills. PHYSICAL EXAM: VITAL SIGNS: Stable GENERAL: Well-developed pleasant in no acute distress. HEENT: No scleral icterus. Extraocular movements grossly intact. Moist buccal mucosa. NECK: Supple without lymphadenopathy. CHEST: Unlabored respirations. Equal bilateral excursions. CARDIOVASCULAR: Regular rate and rhythm. Distal 2+ pulses. ABDOMEN: Soft, nontender, nondistended. MUSCULOSKELETAL: No clubbing, cyanosis, or edema. ASSESSMENT: 1. Colon screen. PLAN: 1. Recommend proceeding with a lower endoscopy Past Medical History Past Medical History: Asthma, Cancer, Diabetes Mellitus, Hypertension, Skin Disorder, Sleep Apnea/CPAP/BIPAP Additional Past Medical History / Comment(s): no cpap used, psoriasis, MALIGNANT MELONOMA BACK, long covid History of Any Multi-Drug Resistant Organisms: None Reported Past Surgical History: Cholecystectomy, Hernia Repair Additional Past Surgical History / Comment(s): HERNIA-UMBILICAL HERNIA x2 Past Anesthesia/Blood Transfusion Reactions: No Reported Reaction Smoking Status: Never smoker - Past Family History Father Family Medical History: Cancer Mother Family Medical History: Cancer Medications and Allergies Home Medications Medication Instructions Recorded Confirmed Type Montelukast Sodium [Singulair] 10 mg PO HS 04/10/15 02/11/24 History Biotin [Biotin Disolve] 5,000 mcg PO DAILY 05/18/19 02/11/24 History Cholecalciferol [Vitamin D3 (25 5,000 unit PO DAILY 05/18/19 02/11/24 History Mcg = 1000 Iu)] Ixekizumab [Taltz Autoinjector] 80 mg SQ Q30D 12/29/20 02/11/24 History hydroCHLOROthiazide [Hydrodiuril] 25 mg PO HS 12/29/20 02/11/24 History Celecoxib 200 mg PO DAILY 02/09/24 02/11/24 History Cinnamon Bark [Cinnamon] 2,000 mg PO DAILY 02/09/24 02/11/24 History D3 K2 (Unk) 1 tab PO DAILY 02/09/24 02/11/24 History Dapagliflozin Propanediol [Farxiga] 10 mg PO 1200 02/09/24 02/11/24 History Olmesartan Medoxomil 40 mg PO DAILY 02/09/24 02/11/24 History Terazosin [Hytrin] 2 mg PO HS 02/09/24 02/11/24 History sitaGLIPtin [Januvia] 100 mg PO DAILY 02/09/24 02/11/24 History Allergies Allergy/AdvReac Type Severity Reaction Status Date / Time acetaminophen [From Vicodin] Allergy Nausea, Verified 02/11/24 08:12 insomnia aspartame Allergy Rash/Hives Verified 02/11/24 08:12 erythromycin base Allergy Rash/Hives Verified 02/11/24 08:12 hydrocodone bitartrate Allergy Nausea, Verified 02/11/24 08:12 [From Vicodin] insomnia lidocaine Allergy "passed Verified 02/11/24 08:12 out" Nitrate Analogues Allergy Rash/Hives Verified 02/11/24 08:12 paroxetine HCl [From Paxil] Allergy LUZ Verified 02/11/24 08:12 semaglutide [From Ozempic] Allergy Anaphylaxis Verified 02/11/24 08:12 sulfite Allergy Rash/Hives Verified 02/11/24 08:12 tirzepatide [From Mounjaro] Allergy Anaphylaxis Verified 02/11/24 08:12 environmental Allergy Unknown Uncoded 02/11/24 08:12 stevia Allergy Rash/Hives Uncoded 02/11/24 08:12 Surgical - Exam Vital Signs Temp Pulse Resp BP Pulse Ox 98 F 116 H 16 141/91 95 02/11/24 08:10 02/11/24 08:10 02/11/24 08:10 02/11/24 08:10 02/11/24 08:10 Results - Labs Abnormal Lab Results - Last 24 Hours (Table) 02/11/24 Range/Units 08:19 POC Glucose (mg/dL) 135 H (70-110) mg/dL
[2024-02-11 09:05] VITALS: RESP 16; TEMP 98
--- NOTE | 2024-02-11 09:12 | P.PCN ---
Date of Procedure: 02/11/24 Description of Procedure: PREOPERATIVE DIAGNOSIS: Personal history of colon polyps Colonoscopy screening POSTOPERATIVE DIAGNOSIS: Tubular adenoma ascending colon Sigmoid diverticulosis Internal hemorrhoids, grade 2 OPERATION: Colonoscopy to the ileocecal valve and appendiceal orifice, cecum Colonoscopy with hot snare polypectomy SURGEON: Melanie Daugherty MD. ANESTHESIA: MAC. INDICATIONS: The patient is an 53-year-old male who presents personal history of colon polyps. Last colonoscopy 5 years. Benefits and risks were described and informed consent was obtained. DESCRIPTION OF PROCEDURE: The patient had undergone Sutab prep. The patient had been brought into the operating room and laid in the left lateral decubitus position. After adequate intravenous sedation, the rectum was examined with 2% lidocaine jelly. The prostate was unremarkable. External hemorrhoids were encountered. The rectal tone was within normal limits. No lesions were palpated in the rectal vault. An Olympus colonoscope was advanced until the cecum, ileocecal valve and appendiceal orifice were clearly viewed. The prep was fair. Sigmoid diverticulosis was encountered. Colonic polyps were found and removed. No evidence of focal colitis was found. Retroflexion of the scope demonstrated grade 2 internal hemorrhoids without active bleeding or inflammation. The colon was desufflated. The patient had tolerated the procedure well. Withdrawal time was over 6 minutes. FINDINGS: Aronchick preparation quality scale 2 (1-5) Internal hemorrhoids, grade 2 External hemorrhoids, grade 2. No arteriovenous malformations. Sigmoid diverticulosis Removal of 1 polyps: - Snare polypectomy ascending colon, 8 mm tubulovillous adenoma. No focal colitis. RECOMMENDATIONS: Repeat colonoscopy 3 years, 2026 Plan - Discharge Summary Discharge Rx Participant: No New Discharge Prescriptions: Continue Montelukast Sodium [Singulair] 10 mg PO HS Cholecalciferol [Vitamin D3 (25 Mcg = 1000 Iu)] 5,000 unit PO DAILY Biotin [Biotin Disolve] 5,000 mcg PO DAILY hydroCHLOROthiazide [Hydrodiuril] 25 mg PO HS Olmesartan Medoxomil 40 mg PO DAILY Dapagliflozin Propanediol [Farxiga] 10 mg PO 1200 Cinnamon Bark [Cinnamon] 2,000 mg PO DAILY Ixekizumab [Taltz Autoinjector] 80 mg SQ Q30D Terazosin [Hytrin] 2 mg PO HS sitaGLIPtin [Januvia] 100 mg PO DAILY D3 K2 (Unk) 1 tab PO DAILY Celecoxib 200 mg PO DAILY Discharge Medication List Montelukast Sodium [Singulair] 10 mg PO HS 04/10/15 [History] Biotin [Biotin Disolve] 5,000 mcg PO DAILY 05/18/19 [History] Cholecalciferol [Vitamin D3 (25 Mcg = 1000 Iu)] 5,000 unit PO DAILY 05/18/19 [History] Ixekizumab [Taltz Autoinjector] 80 mg SQ Q30D 12/29/20 [History] hydroCHLOROthiazide [Hydrodiuril] 25 mg PO HS 12/29/20 [History] Celecoxib 200 mg PO DAILY 02/09/24 [History] Cinnamon Bark [Cinnamon] 2,000 mg PO DAILY 02/09/24 [History] D3 K2 (Unk) 1 tab PO DAILY 02/09/24 [History] Dapagliflozin Propanediol [Farxiga] 10 mg PO 1200 02/09/24 [History] Olmesartan Medoxomil 40 mg PO DAILY 02/09/24 [History] Terazosin [Hytrin] 2 mg PO HS 02/09/24 [History] sitaGLIPtin [Januvia] 100 mg PO DAILY 02/09/24 [History] Follow up Appointment(s)/Referral(s): Melanie Daugherty MD [STAFF PHYSICIAN] - 03/09/24 1:15 pm Patient Instructions/Handouts: *Surgery [facility] - (Anesthesia) Discharge Instructions Outpatient Surgery, Colorectal Polyps (GEN) Activity/Diet/Wound Care/Special Instructions: Colonoscopy 3 years, 2026 Discharge Disposition: HOME SELF-CARE
[2024-02-11 09:51] VITALS: BP 143/88; PULSE 100
== END 2024-02-11 09:25 | disposition home or self-care (01) ==
LOC: ORWHC2ENDO 07:43
PROVIDERS: ATTEND Surgery Plastic and Reconstructive Surgery
DX: Z12.11 Encounter for screening for malignant neoplasm of colon (principal); D12.4 Benign neoplasm of descending colon; D12.2 Benign neoplasm of ascending colon; K57.30 Diverticulosis of large intestine without perforation or abscess without bleeding; K64.1 Second degree hemorrhoids; J45.909 Unspecified asthma, uncomplicated; I10 Essential (primary) hypertension; E11.9 Type 2 diabetes mellitus without complications; G47.30 Sleep apnea, unspecified; Z79.1 Long term (current) use of non-steroidal anti-inflammatories (NSAID); Z79.84 Long term (current) use of oral hypoglycemic drugs; Z88.1 Allergy status to other antibiotic agents; Z88.5 Allergy status to narcotic agent; Z90.49 Acquired absence of other specified parts of digestive tract; Z98.890 Other specified postprocedural states; Z86.010 Personal history of colon polyps; Z88.2 Allergy status to sulfonamides; Z88.8 Allergy status to other drugs, medicaments and biological substances
CPT/HCPCS: 88305; 45385; J2704

== ENCOUNTER → 2025-05-05 | Outpatient (CLI) | payer OTHER ==
--- NOTE | 2025-05-05 13:09 | XR ---
EXAMINATION TYPE: XR foot complete bilateral DATE OF EXAM: 05/05/2025 12:59 PM COMPARISON: None. CLINICAL INDICATION: Male, 54 years old with history of L40.50 Psoriatic arthritis M72.2 Plantar fasc iitis, pain TECHNIQUE: XR foot complete bilateral XX views were obtained. FINDINGS: There is no acute fracture/dislocation evident. Moderate Degenerative narrowing first metatarsophalan geal joint bilaterally right greater than left. No erosive or bony destructive changes seen. No soft tissue calcifications plantar calcaneal spurring.. The overlying soft tissue appears unremarkable. IMPRESSION: No acute fracture or dislocation. [facility], , 05/05/2025 1:06 PM
--- NOTE | 2025-05-05 13:11 | XR ---
EXAMINATION TYPE: XR hand complete bilateral DATE OF EXAM: 05/05/2025 12:59 PM COMPARISON: None. CLINICAL INDICATION: Male, 54 years old with history of L40.50 Psoriatic arthritis M72.2 Plantar fasc iitis, pain TECHNIQUE: XR hand complete bilateral XX views were obtained. FINDINGS: There is no acute fracture/dislocation evident. The joint spaces appear within normal limits. The ov erlying soft tissue appears unremarkable. IMPRESSION: No acute fracture or dislocation. [facility], , 05/05/2025 1:09 PM
== END | disposition home or self-care (01) ==
LOC: RADXRMAIN 12:26
PROVIDERS: ATTEND Internal Medicine Rheumatology
DX: L40.50 Arthropathic psoriasis, unspecified (principal); M72.2 Plantar fascial fibromatosis